=== PATIENT | male | born 1990 | race Caucasian/White ===

== ENCOUNTER 2020-02-24 01:55 | Emergency (ER) | payer OTHER ==
--- NOTE | 2020-02-24 02:12 | ERPHSYRPT ---
- History of Present Illness Time Seen by Provider: 02/24/20 02:12 Source: patient Exam Limitations: no limitations Physician History: This is a 29-year-old white male who twisted his right ankle while walking down the stairs on prior to this evaluation. Patient has been using crutches and has an Sumeet wrap around the right foot and ankle. He can bear weight but it hurts to do so. There is also bruising present now. Occurred: last week Quality: aching Severity of Pain-Max: mild Severity of Pain-Current: mild Lower Extremities Pain: ankle: right Associated Symptoms: other (Mild pain with bearing weight.) Allergies/Adverse Reactions: No Known Drug Allergies Allergy (Verified 02/24/20 02:20) Home Medications: No Reportable Medications [No Reported Medications] 02/24/20 [History] Hx Tetanus, Diphtheria Vaccination/Date Given: Yes Hx Influenza Vaccination/Date Given: No Hx Pneumococcal Vaccination/Date Given: No Travel Risk - International Travel Have you traveled outside of the country in past 3 weeks: No Have you or anyone close to you been diagnosed with or: No Do your reside in a community with a known COVID-19 case?: Yes If Yes where:: [facility] - Coronavirus Screening Has patient experienced Coronavirus symptoms: No - Review of Systems Constitutional: No Symptoms Eyes: No Symptoms Ears, Nose, & Throat: No Symptoms Respiratory: No Symptoms Cardiac: No Symptoms Abdominal/Gastrointestinal: No Symptoms Genitourinary Symptoms: No Symptoms Musculoskeletal: No Symptoms Skin: No Symptoms Neurological: No Symptoms Psychological: No Symptoms Endocrine: No Symptoms Hematologic/Lymphatic: No Symptoms Immunological/Allergic: No Symptoms All Other Systems: Reviewed and Negative - Past Medical History Pertinent Past Medical History: Yes Neurological History: No Pertinent History ENT History: Other Cardiac History: No Pertinent History Respiratory History: No Pertinent History Endocrine Medical History: No Pertinent History Musculoskeletal History: Other GI Medical History: No Pertinent History History: No Pertinent History Psycho-Social History: Depression Male Reproductive Disorders: No Pertinent History Other Medical History: CRESCENCIO IN BACK, SEES CHIROPRACTOR AND L5 GETS OUT - Past Surgical History Past Surgical History: No Neuro Surgical History: No Pertinent History Cardiac: No Pertinent History Respiratory: No Pertinent History Gastrointestinal: No Pertinent History Genitourinary: No Pertinent History Musculoskeletal: No Pertinent History Male Surgical History: No Pertinent History - Social History Smoking Status: Current every day smoker Exposure to second hand smoke: No Drug Use: marijuana Patient Lives Alone: No - Nursing Vital Signs Nursing Vital Signs: Initial Vital Signs Temperature 98.6 F 02/24/20 02:00 Pulse Rate 93 H 02/24/20 02:00 Respiratory Rate 16 02/24/20 02:00 Blood Pressure 163/90 02/24/20 02:00 O2 Sat by Pulse Oximetry 98 02/24/20 02:00 Pain Scale Pain Intensity 1 - Physical Exam General Appearance: no apparent distress, alert Eyes, Ears, Nose, Throat Exam: normal ENT inspection, moist mucous membranes Neck Exam: normal inspection, non-tender, supple, full range of motion Cardiovascular/Respiratory Exam: chest non-tender Gastrointestinal/Abdominal Exam: non-tender Back Exam: normal inspection, normal range of motion, No CVA tenderness, No vertebral tenderness Hips Exam: bilateral: non-tender, normal inspection, normal range of motion, no evidence of injury Legs Exam: bilateral leg: non-tender, normal inspection, normal range of motion , no evidence of injury Knees Exam: bilateral knee: non-tender, normal inspection, normal range of motion, no evidence of injury Ankle Exam: right ankle: ecchymosis, pain (Mild), soft tissue tenderness, swelling, left ankle: non-tender, normal inspection, normal range of motion, no evidence of injury Foot Exam: right foot: ecchymosis, left foot: normal inspection, bilateral foot : non-tender, normal range of motion Neuro/Tendon Exam: normal sensation, normal motor functions, normal tendon functions, no evidence tendon injury Mental Status Exam: alert, oriented x 3, cooperative Skin Exam: ecchymosis (Right foot and ankle) SpO2 Interpretation: normal SpO2: 98 O2 Delivery: Room Air - Course Nursing assessment & vital signs reviewed: Yes Ordered Tests: Active Orders 24 hr Category Date Time Status ANKLE (3 VIEWS) Stat Exams 02/24/20 02:10 Ordered - Progress Progress: unchanged Progress Note: 02/24/20 02:30 X-ray of right ankle reveals no evidence of any acute fracture or dislocation Counseled pt/family regarding: diagnosis, need for follow-up, rad results - Departure Departure Disposition: Home Clinical Impression: Right ankle sprain Condition: Stable Critical Care Time: No Referrals: BERNARD ZAVALA [Primary Care Provider] - Additional Instructions: Ice right ankle 3 times daily for the next 48 hours. Keep the right lower extremity elevated above the level of your heart whenever not ambulating. Weightbearing as tolerated. Use Tylenol and ibuprofen for pain. Follow-up with the [facility] orthopedic clinic for persistent symptoms.
[2020-02-24 02:39] VITALS: BP 129/89; PULSE 66; O2SAT 95
--- NOTE | 2020-02-24 08:11 | XRAY ---
Indication: Pain and edema following twisting injury. Comparison: None 3 views of the right ankle demonstrates mild anterolateral soft tissue swelling. No other bony, articular, or soft tissue abnormalities.
== END 2020-02-24 02:41 | disposition home or self-care (01) ==
LOC: ED 01:55
DX: S93.401A Sprain of unspecified ligament of right ankle, initial encounter (principal); X37.1XXA Tornado, initial encounter; Y93.01 Activity, walking, marching and hiking; Y92.89 Other specified places as the place of occurrence of the external cause; M25.571 Pain in right ankle and joints of right foot
CPT/HCPCS: 73610; 99284